=== PATIENT | female | born 1985 | race Caucasian/White ===

== ENCOUNTER 2020-11-25 15:01 | Inpatient (IN) | payer SELFPAY ==
[2020-11-25 15:40] LABS: Absolute Lymphocytes (CBC) 1.3 K/uL (0.7-4.9); Basophils % 0.5 % (0-1.3); Hematocrit 24.4 % (36.0-45.0); Lymphocytes % 22.9 % (15.3-44.8); MPV 10.1 fL (7.6-11.3); RBC Red Blood Cell Count 4.26 M/uL (3.86-4.86)
--- NOTE | 2020-11-25 15:59 | ER ---
Nurse's Notes [facility] Name: Anette Lewis Age: 35 yrs Sex: Female : 1985 Arrival Date: 11/25/2020 Time: 15:03 Bed 13 Private MD: Diagnosis: Anemia, unspecified Presentation: 11/25 15:04 Chief complaint: Patient states: "I did some blood work and my hemoglobin was 7.2 so I aa5 may need a blood transfusion". Pt reports hx of chronic anemia with need of blood transfusion. Pt currently reports SOB on exertion. 15:04 Coronavirus screen: At this time, the client does not indicate any symptoms associated aa5 with coronavirus-19. Ebola Screen: Patient negative for fever greater than or equal to 101.5 degrees Fahrenheit, and additional compatible Ebola Virus Disease symptoms. Initial Sepsis Screen: Does the patient meet any 2 criteria? HR > 90 bpm. Does the patient have a suspected source of infection? No. Patient's initial sepsis screen is negative. Risk Assessment: Do you want to hurt yourself or someone else? Patient reports no desire to harm self or others. Onset of symptoms was November 2020. 15:04 Acuity: UZAIR 3 aa5 15:04 Method Of Arrival: Ambulatory aa5 Triage Assessment: 15:48 Respiratory: Onset: The symptoms/episode began/occurred at an unknown time. the patient zb has moderate shortness of breath. 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 - Social history:: Smoking status: Smoking status: Patient denies any tobacco usage or history of. Screenin:43 Abuse screen: Denies threats or abuse. Denies injuries from another. Nutritional zb screening: No deficits noted. Tuberculosis screening: No symptoms or risk factors identified. Fall Risk None identified. Assessment: 15:41 General: Appears in no apparent distress. comfortable, Behavior is calm, cooperative, zb appropriate for age, Reports fatigue for >3 days. Pain: Denies pain. Neuro: Level of Consciousness is awake, alert, obeys commands, Oriented to person, place, time, situation. Cardiovascular: Patient's skin is warm and dry. Rhythm is regular. Respiratory: Reports shortness of breath on exertion since Tuesday Airway is patent Respiratory effort is even, unlabored, Respiratory pattern is regular, symmetrical, Breath sounds are diminished bilaterally. GI: Abdomen is round obese. Derm: Skin is intact, is healthy with good turgor, Skin is dry, Skin is pale, Skin temperature is warm. Musculoskeletal: Circulation, motion, and sensation intact. 16:00 Reassessment: Patient appears in no apparent distress at this time. Patient and/or zb family updated on plan of care and expected duration. Pain level reassessed. Patient is alert, oriented x 3, equal unlabored respirations, skin warm/dry/pink. ECP at bedside. 17:08 Reassessment: Patient appears in no apparent distress at this time. Patient and/or zb family updated on plan of care and expected duration. Pain level reassessed. Patient is alert, oriented x 3, equal unlabored respirations, skin warm/dry/pink. 18:00 Reassessment: Patient appears in no apparent distress at this time. Patient and/or zb family updated on plan of care and expected duration. Pain level reassessed. Patient is alert, oriented x 3, equal unlabored respirations, skin warm/dry/pink. 19:00 Reassessment: Patient appears in no apparent distress at this time. Patient and/or zb family updated on plan of care and expected duration. Pain level reassessed. Patient is alert, oriented x 3, equal unlabored respirations, skin warm/dry/pink. family at bedside. no changes at this time. Vital Signs: 15:00 BP 116 / 75; Pulse 73; Resp 18; Pulse Ox 100% on R/A; zb 15:04 BP 135 / 99; Pulse 95; Resp 16 S; Temp 98.7(O); Pulse Ox 100% on R/A; aa5 16:00 BP 116 / 75; Pulse 76; Resp 16; Pulse Ox 100% on R/A; zb 17:07 BP 112 / 64; Pulse 73; Resp 18; Pulse Ox 100% on R/A; zb 18:15 BP 113 / 65; Pulse 78; Resp 16; Pulse Ox 100% on R/A; zb 19:00 BP 108 / 65; Pulse 74; Resp 16; Pulse Ox 99% on R/A; zb 19:54 BP 107 / 75; Pulse 75; Resp 18; Pulse Ox 100% on R/A; zb ED Course: 15:03 Patient arrived in ED. ds1 15:04 Arm band placed on Patient placed in an exam room, on a stretcher. aa5 15:07 Kassi Hill FNP-C is PHCP. kb 15:07 Glynn Snell MD is Attending Physician. kb 15:12 Triage completed. aa5 15:25 Initial lab(s) drawn, by me, sent to lab. Inserted saline lock: 20 gauge in right kj1 antecubital area, using aseptic technique. Blood collected. 15:26 Roxanne Joiner, JOSE DANIEL is Primary Nurse. zb 15:45 Patient has correct armband on for positive identification. Bed in low position. Call zb light in reach. Side rails up X 1. Pulse ox on. NIBP on. Door closed. Noise minimized. 15:59 Edvin Mcguire MD is Hospitalizing Provider. kb 20:11 No provider procedures requiring assistance completed. Patient admitted, IV remains in zb place. Administered Medications: No medications were administered Outcome: 15:59 Decision to Hospitalize by Provider. kb 20:12 Admitted to Med/surg accompanied by tech, via wheelchair, room 216, with chart, Report zb called to JOSE DANIEL [place] 20:12 Condition: unchanged 20:12 Instructed on the need for admit, Demonstrated understanding of instructions. 20:14 Patient left the ED. zb Signatures: Kassi Hill FNP-C TREE TRIMMING LINE TECHNICIAN-Yumiko Alfonso ds1 Mary Barron, RN RN aa5 Teresa Hill kj1 Roxanne Joiner RN RN zga Corrections: (The following items were deleted from the chart) 16:04 16:00 Reassessment: ECP at bedside. zb zb 16:04 15:50 BP 116 / 75; Pulse 73bpm; Resp 18bpm; Pulse Ox 100% RA; zb zb
--- NOTE | 2020-11-25 15:59 | EDPHYS ---
Physician Documentation [facility] Name: Anette Lewis Age: 35 yrs Sex: Female : 1985 Arrival Date: 11/25/2020 Time: 15:03 Bed 13 Private MD: ED Physician Glynn Snell HPI: 11/25 15:31 This 35 yrs old Female presents to ER via Ambulatory with complaints of kb Shortness Of Breath. 15:31 The patient has shortness of breath with light activity. Onset: The symptoms/episode kb began/occurred 3 day(s) ago. Duration: The symptoms are continuous. The patient's shortness of breath is aggravated by exertion, is alleviated by rest. Associated signs and symptoms: Pertinent positives: This patient does not have any pertinent positive signs or symptoms associated with shortness of breath. Severity of symptoms: At their worst the symptoms were mild moderate in the emergency department the symptoms are unchanged. The patient has not experienced similar symptoms in the past. The patient has not recently seen a physician. Pt reports shortness of breath on exertion that started a couple of days ago. States this happens once every few years due to anemia. States she normally gets a transfusion and then she's fine for a few years. Has been to specialists for colonoscopy and EGD, as well as other tests with no reason for the anemia. Went to PCP, had blood work done this morning. was told to come to the ER for hgb of 7.1. 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 - Social history:: Smoking status: Smoking status: Patient denies any tobacco usage or history of. ROS: 15:30 Constitutional: Negative for fever, chills, and weight loss, Cardiovascular: Negative kb for chest pain, palpitations, and edema, Abdomen/GI: Negative for abdominal pain, nausea, vomiting, diarrhea, and constipation, MS/Extremity: Negative for injury and deformity, Skin: Negative for injury, rash, and discoloration, Neuro: Negative for headache, weakness, numbness, tingling, and seizure. 15:30 Respiratory: Positive for dyspnea on exertion. Exam: 15:30 Head/Face: Normocephalic, atraumatic. Cardiovascular: Regular rate and rhythm with a kb normal S1 and S2. No gallops, murmurs, or rubs. No pulse deficits. Respiratory: Respirations even and unlabored. No increased work of breathing, no retractions or nasal flaring. Abdomen/GI: Soft, non-tender. No distention Skin: Warm, dry with normal turgor. Normal color. MS/ Extremity: Pulses equal, no cyanosis. Neurovascular intact. Full, normal range of motion. Neuro: Awake and alert, GCS 15, oriented to person, place, time, and situation. Moves all extremities. Normal gait. 15:30 Constitutional: The patient appears alert, awake, pale. Vital Signs: 15:00 BP 116 / 75; Pulse 73; Resp 18; Pulse Ox 100% on R/A; zb 15:04 BP 135 / 99; Pulse 95; Resp 16 S; Temp 98.7(O); Pulse Ox 100% on R/A; aa5 16:00 BP 116 / 75; Pulse 76; Resp 16; Pulse Ox 100% on R/A; zb 17:07 BP 112 / 64; Pulse 73; Resp 18; Pulse Ox 100% on R/A; zb 18:15 BP 113 / 65; Pulse 78; Resp 16; Pulse Ox 100% on R/A; zb 19:00 BP 108 / 65; Pulse 74; Resp 16; Pulse Ox 99% on R/A; zb 19:54 BP 107 / 75; Pulse 75; Resp 18; Pulse Ox 100% on R/A; zb MDM: 15:07 Patient medically screened. kb 15:30 Data reviewed: vital signs, nurses notes. Data interpreted: Pulse oximetry: on room air kb is 100 %. Interpretation: normal. 15:50 Counseling: I had a detailed discussion with the patient and/or guardian regarding: the kb historical points, exam findings, and any diagnostic results supporting the discharge/admit diagnosis, lab results, the need for further work-up and treatment in the hospital. 15:56 Physician consultation: Edvin Mcguire MD was contacted at 15:58, regarding admission, kb to the telemetry unit. patient's condition, and will see patient in ED. 11/25 15:11 Order name: CBC with Diff kb 11/25 15:11 Order name: Type And Screen kb 11/25 15:11 Order name: Basic Metabolic Panel; Complete Time: 16:15 kb 11/25 15:12 Order name: CBC with Automated Diff; Complete Time: 16:15 EDMS 11/25 15:50 Order name: CBC Smear Scan; Complete Time: 16:15 EDMS 11/25 15:58 Order name: Bb Add On bd 11/25 15:11 Order name: IV Start; Complete Time: 15:36 kb 11/25 16:01 Order name: COVID-19 : Document "Date of Symptom Onset" if Symptomatic. kb 11/25 16:25 Order name: Packed RBC Leukored EDKY 11/25 17:33 Order name: SARS-COV-2 RT PCR; Complete Time: 17:40 EDMS 11/25 17:42 Order name: Retic Count; Complete Time: 17:46 EDMS 11/25 17:50 Order name: Transferrin Sat/Iron Binding; Complete Time: 17:53 EDMS 11/25 17:50 Order name: Ferritin; Complete Time: 17:53 EDMS Administered Medications: No medications were administered Disposition: 11/26 06:10 Co-signature as Attending Physician, Glynn Snell MD I agree with the assessment and kdr plan of care. Disposition: 11/25/20 15:59 Hospitalization ordered by Edvin Mcguire for Observation. Preliminary diagnosis is Anemia, unspecified. - Bed requested for Telemetry/MedSurg (observation). - Status is Observation. zb - Condition is Stable. - Problem is new. - Symptoms are unchanged. Signatures: Dispatcher [employer] EDKY Kassi Hill, RN SOCIAL SERVICES-C RN SOCIAL SERVICES-CkSushma Lopez RN RN dw Glynn Snell MD MD [facility] Mary Barron RN RN aa5 Roxanne Joiner RN RN zb Corrections: (The following items were deleted from the chart) 11/25 19:34 15:59 Hospitalization Ordered by Edvin Mcguire MD for Observation. Preliminary dw diagnosis is Anemia, unspecified. Bed requested for Telemetry/MedSurg (observation). Status is Observation. Condition is Stable. Problem is new. Symptoms are unchanged. kb 20:14 19:34 11/25/2020 15:59 Hospitalization Ordered by Edvin Mcguire MD for Observation. zb Preliminary diagnosis is Anemia, unspecified. Bed requested for Telemetry/MedSurg (observation). Status is Observation. Condition is Stable. Problem is new. Symptoms are unchanged. dw
[2020-11-25 16:02] LABS: BUN Blood Urea Nitrogen 12 mg/dL (7-18); Bicarbonate 26 mmol/L (21-32); Glucose Level 87 mg/dL (74-106); Potassium 3.5 mmol/L (3.5-5.1); Sodium Level 139 mmol/L (136-145)
[2020-11-25 16:13] LABS: White Blood Cell Scan OK (OK)
[2020-11-25 16:14] LABS: Anisocytosis 1+; Blood Morphology Comment NOTED (NOT SEEN); Hypochromasia 3+; Platelet Estimate ADEQ; Platelets, Giant PRESENT; Poikilocytosis 1+
--- NOTE | 2020-11-25 16:54 | P.HP ---
Certification for Inpatient Patient admitted to: Observation With expected LOS: <2 Midnights Practitioner: I am a practitioner with admitting privileges, knowledge of patient current condition, hospital course, and medical plan of care. Services: Services provided to patient in accordance with Admission requirements found in Title 42 Section 412.3 of the Code of Federal Regulations Patient History Date of Service: 11/25/20 Reason for admission: anemia History of Present Illness: 35yo F presents to ED under advice from PCP due to low hemoglobin noted on labwork. PMH: chronic anemia, iron deficiency after gastric bypass surgery in 2001 Patient states she received a Surya Surya vaccine 1 week ago, had flu-like symptoms, and decided to get some routine blood work. Blood work showed a low hemoglobin around 7. She is advised coming to the ER for blood transfusion. She states this has happened multiple times before. She has had multiple endoscopies which were all negative, she denies any bleeding, she denies experiencing any significant fatigue/dizziness/lightheadedness. She states this is typical for her, and does not notice a difference until after receiving the blood and feeling much better. She takes NPO Terry occasionally, but has been told she does not absorb it well since the surgery. She denies any acid reflux, no epigastric pain. Her hemoglobin in the ED is noted to be 6.7, MCV: 57.3. ED provider ordered for 2 units of PRBCs and would like the patient to be brought in for observation overnight. Allergies No Known Allergies Allergy (Verified 05/29/13 17:20) Home Medications: Cyanocobalamin [Vitamin B-12*] 1,000 mcg IM EVERY 7TH DAY #12 vial 07/31/17 Ferrous Sulfate [Feosol] 325 mg PO TID #90 tablet 07/31/17 levoFLOXacin [Levaquin] 500 mg PO DAILY #14 tab 07/31/17 - Past Medical/Surgical History Diabetic: No -: anemia -: obesity -: gastric by-pass 2001 - Family History Father -: Hypertension, Diabetes Mother -: Hypertension - Social History Smoking Status: Never smoker Alcohol use: Yes CD- Drugs: No Caffeine use: Yes Place of Residence: Home Review of Systems 10-point ROS is otherwise unremarkable Physical Examination - Physical Exam General: Alert, In no apparent distress, Oriented x3 HEENT: PERRLA, Sclerae nonicteric Neck: Supple Respiratory: Clear to auscultation bilaterally, Normal air movement Cardiovascular: No edema, Regular rate/rhythm, Normal S1 S2 Gastrointestinal: Soft and benign, Non-distended, No tenderness Musculoskeletal: No erythema, No tenderness Integumentary: No rashes Neurological: Normal speech, Normal strength at 5/5 x4 extr, Normal affect - Studies Laboratory Data (last 24 hrs) 11/25/20 15:21: Sodium 139, Potassium 3.5, BUN 12, Creatinine 0.45 L, Glucose 87 11/25/20 15:21: WBC 5.60, Hgb 6.7 L*, Hct 24.4 L, Plt Count 248 Assessment and Plan - Advance Directives Does patient have a Living Will: No Does patient have a Durable POA for Healthcare: No Physician Review Additional Text: Problem list Acute on chronic anemia Iron deficiency anemia. h/o gastric bypass -2 unit PRBC ordered by ED, will bring patient in for observation -will obtain iron profile, patient with significant microcytic anemia -recheck hemoglobin post transfusion, CBC in a.m. -patient otherwise appears well, denies any bleeding, does not want any further workup done, states she has had multiple scopes in the past -anticipate discharge home tomorrow, can follow up with PCP for any further workup if indicated -discussed she may need more routine iron transfusions -does not know where here baseline Hgb is Time Spent Managing Pts Care (In Minutes): 55
[2020-11-25 17:42] LABS: RBC Red Blood Cell Count 4.26 M/uL (3.86-4.86)
[2020-11-25 17:50] LABS: Ferritin 3.3 ng/mL (8-388)
[2020-11-25 22:19] VITALS: BMI 40.6
[2020-11-25] MEDS ORDERED: NA CHLORIDE 0.9% 250 ML ONE (23:18)
[2020-11-26 08:49] VITALS: O2SAT 100
[2020-11-26 09:03] VITALS: TEMP 98.5
[2020-11-26 10:21] LABS: Absolute Lymphocytes (CBC) 1.3 K/uL (0.7-4.9); Basophils % 1.3 % (0-1.3); Hematocrit 29.7 % (36.0-45.0); Lymphocytes % 26.2 % (15.3-44.8); MPV 9.1 fL (7.6-11.3)
[2020-11-26 10:38] LABS: BUN Blood Urea Nitrogen 12 mg/dL (7-18); Bicarbonate 25 mmol/L (21-32); Glucose Level 89 mg/dL (74-106); Sodium Level 140 mmol/L (136-145)
--- NOTE | 2020-11-26 10:50 | P.DS ---
Admission Date: 11/25/20 Discharge Date: 11/26/20 Disposition: ROUTINE DISCHARGE Discharge Condition: GOOD Reason for Admission: anemia Brief History of Present Illness: 35yo F presents to ED under advice from PCP due to low hemoglobin noted on labwork. PMH: chronic anemia, iron deficiency after gastric bypass surgery in 2001 Patient states she received a Surya Surya vaccine 1 week ago, had flu-like symptoms, and decided to get some routine blood work. Blood work showed a low hemoglobin around 7. She is advised coming to the ER for blood transfusion. She states this has happened multiple times before. She has had multiple endoscopies which were all negative, she denies any bleeding, she denies experiencing any significant fatigue/dizziness/lightheadedness. She states this is typical for her, and does not notice a difference until after receiving the blood and feeling much better. She takes NPO Terry occasionally, but has been told she does not absorb it well since the surgery. She denies any acid reflux, no epigastric pain. Her hemoglobin in the ED is noted to be 6.7, MCV: 57.3. ED provider ordered for 2 units of PRBCs and would like the patient to be brought in for observation overnight. Hospital Course: Anette was found to be anemic , with hemoglobin 6.7, MCV: 57.3. Iron profile consistent with iron deficiency anemia. Iron: 15, ferritin: 3.3, TIBC: 449, transferrin saturation: 3.3%. She received 2 units PRBCs, hemoglobin improved to 8.7. Patient reported feeling better, more energy. Patient declined any further workup at this time, states she has had EGD and colonoscopy before and did not have any signs of bleeding during her last scopes. She was discharged home. Follow up: PCP - discuss possible IV iron infusions, seems to not absorbed p.o. iron GI - advised to consider follow up with GI/further discussion with PCP if this continues. Vital Signs/Physical Exam: Physical Exam General: Alert, In no apparent distress, Oriented x3 HEENT: PERRLA, Sclerae nonicteric Respiratory: Clear to auscultation bilaterally, Normal air movement Cardiovascular: No edema, Regular rate/rhythm, Normal S1 S2 Gastrointestinal: Soft and benign, Non-distended, No tenderness Musculoskeletal: No erythema, No tenderness Integumentary: No rashes Neurological: Normal speech, Normal strength at 5/5 x4 extr, Normal affect Temp Pulse Resp BP Pulse Ox 98.5 F 71 16 98/56 L 98 11/26/20 08:00 11/26/20 08:00 11/26/20 08:00 11/26/20 08:00 11/26/20 08:00 Laboratory Data at Discharge: WBC 4.90 K/uL (4.3-10.9) 11/26/20 09:58 Hgb 8.7 g/dL (12.0-15.0) L 11/26/20 09:58 Hct 29.7 % (36.0-45.0) L D 11/26/20 09:58 Plt Count 227 K/uL (152-406) 11/26/20 09:58 Sodium 139 mmol/L (136-145) 11/25/20 15:21 Potassium 3.5 mmol/L (3.5-5.1) 11/25/20 15:21 BUN 12 mg/dL (7-18) 11/25/20 15:21 Creatinine 0.45 mg/dL (0.55-1.3) L 11/25/20 15:21 Glucose 87 mg/dL (74-106) 11/25/20 15:21 Home Medications: NK [No Home Meds] 11/25/20 Physician Discharge Instructions: PROBLEM: Iron deficiency anemia GOAL: Clear understanding of disease process INSTRUCTIONS: You were found to be anemic, with severe iron deficiency anemia. You were transfused 2 units of blood and responded appropriately. Recommend continuing to take oral iron as previously prescribed by your Primary Care Provider. Recommend follow up with your PCP - discuss options for IV iron infusions and discuss follow up with GI - to consider repeat EGD / colonoscopy to confirm no GI bleed. - Return to the ER if symptoms worsen. - Call the 2nd floor at if you have any questions regarding your nursing care. Diet: Regular Activity: As tolerated IMMUNIZATION Influenza Vaccine Indicated: Influenza Vaccine Given: Date Given: Pneumonia Vaccine Indicated: No Pneumonia Vaccine Given: Date Given: Diet: Regular Activity: Ad marielena Followup: Elvira Cazares FNP [Primary Care Provider] - 1 Week (Follow up in office in 1 week. Call to schedule an appointment.) Time spent managing pt's care (in minutes): 35
[2020-11-26 10:56] LABS: Potassium 3.9 mmol/L (3.5-5.1)
[2020-11-26] MEDS ORDERED: POTASSIUM CL SA 10 MEQ TAB PO ONE (12:00)
[2020-11-26 12:22] VITALS: BP 120/63
== END 2020-11-26 14:00 | disposition home or self-care (01) | DRG 812 ==
LOC: ER 15:01 → ERHOLD 16:43 → 2ND 20:05 → OBSVTOIN 11-26 10:00
PROVIDERS: ADMIT Hospitalist; ATTEND Hospitalist
PROC: 30233N1 Transfusion of Nonautologous Red Blood Cells into Peripheral Vein, Percutaneous Approach (ICD-10-PCS; principal; 2020-11-26)
DX: D50.9 Iron deficiency anemia, unspecified (principal); Z98.84 Bariatric surgery status; Z79.899 Other long term (current) drug therapy; Z20.822 Contact with and (suspected) exposure to COVID-19
CPT/HCPCS: 36415; 36430; 80048; 82728; 83540; 84466; 85025; 85044; 86850; 86900; 86901; 94760; 97161; 99285; G0378; J7050; P9016; U0003

== ENCOUNTER 2022-06-22 04:42 | Observation (INO) | payer SELFPAY ==
[2022-06-22 05:53] LABS: Hematocrit 25.6 % (36.0-45.0); MCV 58.7 fL (80-100); MPV 8.3 fL (7.6-11.3); RBC Red Blood Cell Count 4.35 M/uL (3.86-4.86)
[2022-06-22 06:09] LABS: Urine Blood 2+ (Negative); Urine Glucose Negative (Negative); Urine Protein 1+ (Negative); Urine Specific Gravity >=1.030 (1.005-1.030)
[2022-06-22 06:10] LABS: Albumin 3.7 g/dL (3.4-5.0); Bilirubin Total 0.8 mg/dL (0.2-1.0); Potassium 3.7 mmol/L (3.5-5.1); Protein, Total 7.4 g/dL (6.4-8.2)
[2022-06-22] MEDS ORDERED: ONDANSETRON 4 MG/2 ML VIAL ONE (06:22)
[2022-06-22] MEDS ORDERED: HYDROMORPHONE HCL 1 MG/ML INJ ONE ×2 (06:22→13:00)
[2022-06-22 07:09] LABS: White Blood Cell Scan OK (OK)
[2022-06-22 07:10] LABS: Anisocytosis 3+; Blood Morphology Comment NOTED (NOT SEEN); Hypochromasia 3+; Platelet Estimate DECR
--- NOTE | 2022-06-22 07:16 | RAD REPORT ---
EXAM DESCRIPTION: CT - Abdomen Pelvis W Contrast - 06/22/2022 7:01 am CLINICAL HISTORY: abdominal pain RUQ COMPARISON: No comparisons TECHNIQUE: Biphasic, helical CT imaging of the abdomen and pelvis was performed following 100 ml non -ionic IV contrast. Oral contrast: No. All CT scans are performed using dose optimization technique as appropriate and may include automated exposure control or mA/KV adjustment according to patient size. FINDINGS: No suspicious findings in the lung bases. The liver, spleen, and pancreas show no suspicious findings. Cholelithiasis present. Gallbladder wall appears slightly thickened. No abnormal degree of biliary tree dilatation. Duct stones can be occult on CT imaging. Symmetric renal function is seen with no hydronephrosis or suspicious renal mass. No pyelonephritis o r acute parenchymal process. No bladder abnormalities. No adrenal abnormalities. Uterus and ovaries s how no suspicious findings. Left ovary contains small cysts or follicles. Largest is 2.7 cm. No ovari an cyst rupture or hemorrhage findings. Gastric bypass surgical changes are present. No acute gastric finding identifiable. Distal anastomosi s the small bowel unremarkable. No acute large or small bowel finding seen. Moderate stool volume is present throughout the colon. No free air, free fluid or inflammatory stranding. No hernia, mass or bulky lymphadenopathy. No suspicious bony findings. IMPRESSION: Gallbladder is distended and not dilated with gallstones seen and slight wall thickening evident. Biliary tree is not dilated beyond normal range. Duct stones in additional gallstones can be occult o n CT imaging. Follow-up gallbladder sonography can be performed if there are acute cholecystitis clin ical findings. No acute GI, or SAP BW ARCHITECT findings otherwise noted.
--- NOTE | 2022-06-22 09:14 | RAD REPORT ---
EXAM DESCRIPTION: US - Abdomen Exam Limited - 06/22/2022 8:46 am CLINICAL HISTORY: ABD PAIN COMPARISON: Abdomen Pelvis W Contrast dated 06/22/2022 FINDINGS: Gallbladder appears distended but not dilated at sonography. Mild gallbladder wall thicken ing is present with a trace amount of pericholecystic fluid identifiable. Within the lumen there are several small mobile gallstones and a moderate quantity of sludge. Sonographic Quintana sign was negati ve for this patient. No common duct stone or biliary tree dilatation identified. IMPRESSION: Stones and sludge are present in the lumen of the gallbladder. Mild gallbladder wall thickening seen with trace amount of pericholecystic fluid. Biliary tree was un remarkable. Sonographic Quintana sign was negative but correlation can be made with any other clinical or laborator y findings of acute cholecystitis.
--- NOTE | 2022-06-22 09:25 | EDPHYS ---
Physician Documentation [facility] Name: Anette Lewis Age: 36 yrs Sex: Female : 1985 Arrival Date: 06/22/2022 Time: 04:44 Bed 14 Private MD: ED Physician Tom Mcguire HPI: 06/22 05:45 This 36 yrs old Female presents to ER via Ambulatory with complaints of Abdominal Pain. sp3 05:45 36-year-old female with history of gastric bypass in 2001, anemia presents to the ED sp3 with right upper quadrant pain x1 day with nausea. She denies headache, chest pain, shortness of breath, diarrhea, left-sided abdominal pain, emesis back pain, flank pain, rash, any other aspect of ROS at this time. Patient still has gallbladder and appendix in place. She denies any potential bad food, sick contacts, or travel history.. 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 - Social history:: Smoking status: Patient denies any tobacco usage or history of. ROS: 05:46 Constitutional: Negative for fever, chills, and weight loss, Eyes: Negative for injury, sp3 pain, redness, and discharge, ENT: Negative for injury, pain, and discharge, Neck: Negative for injury, pain, and swelling, Cardiovascular: Negative for chest pain, palpitations, and edema, Respiratory: Negative for shortness of breath, cough, wheezing, and pleuritic chest pain, Back: Negative for injury and pain, MS/Extremity: Negative for injury and deformity, Skin: Negative for injury, rash, and discoloration, Neuro: Negative for headache, weakness, numbness, tingling, and seizure, Psych: Negative for depression, anxiety, suicide ideation, homicidal ideation, and hallucinations, Allergy/Immunology: Negative for hives, rash, and allergies, Endocrine: Negative for neck swelling, polydipsia, polyuria, polyphagia, and marked weight changes. 05:46 All other systems are negative. Exam: 05:47 Constitutional: This is a well developed, well nourished patient who is awake, alert, sp3 and in no acute distress. Head/Face: Normocephalic, atraumatic. Eyes: Pupils equal round and reactive to light, extra-ocular motions intact. Lids and lashes normal. Conjunctiva and sclera are non-icteric and not injected. Cornea within normal limits. Periorbital areas with no swelling, redness, or edema. Neck: Trachea midline, no thyromegaly or masses palpated, and no cervical lymphadenopathy. Supple, full range of motion without nuchal rigidity, or vertebral point tenderness. No Meningismus. Chest/axilla: Normal chest wall appearance and motion. Nontender with no deformity. No lesions are appreciated. Cardiovascular: Regular rate and rhythm with a normal S1 and S2. No gallops, murmurs, or rubs. Normal PMI, no JVD. No pulse deficits. Respiratory: Lungs have equal breath sounds bilaterally, clear to auscultation and percussion. No rales, rhonchi or wheezes noted. No increased work of breathing, no retractions or nasal flaring. Back: No spinal tenderness. No costovertebral tenderness. Full range of motion. Skin: Warm, dry with normal turgor. Normal color with no rashes, no lesions, and no evidence of cellulitis. MS/ Extremity: Pulses equal, no cyanosis. Neurovascular intact. Full, normal range of motion. Neuro: Awake and alert, GCS 15, oriented to person, place, time, and situation. Cranial nerves II-XII grossly intact. Motor strength 5/5 in all extremities. Sensory grossly intact. Cerebellar exam normal. Normal gait. Psych: Awake, alert, with orientation to person, place and time. Behavior, mood, and affect are within normal limits. 05:47 Abdomen/GI: Patient has right upper quadrant without peritoneal signs. Positive Quintana's. No pain over McBurney's point. No flank pain CVA tenderness.. Vital Signs: 05:03 BP 113 / 62; Pulse 63; Resp 16 S; Temp 98.2(O); Pulse Ox 100% on R/A; Weight 98.88 kg bb (R); Height 5 ft. 5 in. (165.10 cm) (R); Pain 8/10; 06:45 BP 106 / 50; Pulse 55; Resp 16; Pulse Ox 96% on R/A; jb4 08:00 BP 121 / 54; Pulse 56; Resp 16; Pulse Ox 96% ; bp 09:00 BP 116 / 61; Pulse 54; Resp 16; Pulse Ox 100% ; bp 10:00 BP 117 / 60; Pulse 50; Resp 16; Pulse Ox 100% ; bp 12:00 BP 115 / 59; Pulse 65; Resp 16; Pulse Ox 100% ; bp 14:00 BP 109 / 53; Pulse 55; Resp 16; Pulse Ox 99% ; bp 16:00 BP 101 / 69; Pulse 62; Resp 16; Pulse Ox 100% ; bp 05:03 Body Mass Index 36.28 (98.88 kg, 165.10 cm) bb MDM: 05:45 Patient medically screened. sp3 05:48 Data reviewed: vital signs, nurses notes. ED course: 36-year-old female with history of sp3 gastric bypass now with right upper quadrant pain. Given her complicated surgical history, CT scan is more appropriate than ultrasound to evaluate her entire abdomen. Differential diagnosis includes gallbladder pathology including Kimi lithiasis, cholecystitis, and possible pancreatitis gastritis peptic ulcer disease. Less likely on the differential is appendicitis, ACS, aortic pathology, SLURRY BLENDER pathology, genitourinary pathology including kidney stone, pyelonephritis, UTI. Dilaudid and Zofran for pain control and final disposition based on objective criteria from work-up above. Patient will be signed out to day physician at 7 AM for final disposition.. 09:23 Differential diagnosis: cholecystitis, Cholelithiasis, gastritis, gastroesophageal rn reflux disease, non-specific abd pain, pancreatitis, Peptic Ulcer Disease. Counseling: I had a detailed discussion with the patient and/or guardian regarding: the historical points, exam findings, and any diagnostic results supporting the discharge/admit diagnosis, lab results, radiology results, the need for further work-up and treatment in the hospital. Response to treatment: the patient's symptoms have mildly improved after treatment, and as a result, I will admit patient. 06/22 05:06 Order name: CBC with Diff; Complete Time: 07:49 bb 06/22 05:06 Order name: CMP; Complete Time: 06:46 bb 06/22 05:06 Order name: Lipase; Complete Time: 06:46 bb 06/22 05:59 Order name: CBC Smear Scan; Complete Time: 07:49 EDMS 06/22 06:09 Order name: Urine Dipstick-Ancillary; Complete Time: 06:46 EDMS 06/22 05:23 Order name: CT Abd/Pelvis - IV Contrast Only; Complete Time: 07:49 sp3 06/22 08:15 Order name: US Abdomen Limited; Complete Time: 09:21 rn 06/22 10:05 Order name: SARS-COV-2 Antigen Rapid; Complete Time: 11:13 bd 06/22 11:54 Order name: Urinalysis EDMS 06/22 11:54 Order name: Basic Metabolic Panel EDMS 06/22 11:54 Order name: Basic Metabolic Panel EDMS 06/22 11:54 Order name: CBC with Automated Diff EDMS 06/22 11:54 Order name: CBC with Automated Diff EDMS 06/22 05:06 Order name: IV Saline Lock; Complete Time: 06:02 bb 06/22 05:06 Order name: Labs collected and sent; Complete Time: 06:02 bb 06/22 05:06 Order name: Urine Dipstick-Ancillary (obtain specimen); Complete Time: 06:10 bb 06/22 05:06 Order name: Urine Test (obtain specimen); Complete Time: 06:10 bb 06/22 05:23 Order name: NPO; Complete Time: 06:02 sp3 06/22 11:54 Order name: NPO EDMS Administered Medications: 06:30 Drug: Dilaudid (HYDROmorphone) 1 mg Route: IVP; Site: right antecubital; jb4 09:44 Follow up: Response: No adverse reaction bp 06:30 Drug: Zofran (Ondansetron) 4 mg Route: IVP; Site: right antecubital; jb4 09:45 Follow up: Response: No adverse reaction bp 09:40 Drug: Zosyn (piperacillin-tazobactam) 3.375 grams Route: IVPB; Infused Over: 60 mins; bp Site: right antecubital; 16:02 Follow up: IV Status: Completed infusion; IV Intake: 100ml bp 09:40 Drug: NS 0.9% 1000 ml Route: IV; Rate: 1000 ml; Site: right antecubital; bp 16:02 Follow up: IV Status: Completed infusion; IV Intake: 1000ml bp Disposition Summary: 06/22/22 09:24 Hospitalization Ordered Hospitalization Status: Observation rn Condition: Stable rn Problem: new rn Symptoms: have improved rn Bed/Room Type: Standard rn Provider: Edvin Mcguire(06/22/22 10:43) rn Location: [facility](06/22/22 15:41) dw Room Assignment: [facility]-(06/22/22 15:41) dw Diagnosis - Acute cholecystitis rn - Anemia, unspecified rn Forms: - Medication Reconciliation Form rn - SBAR form rn Signatures: Dispatcher [employer] EDSushma Howard RN RN Ethel Huggins RN RN Tom Healy MD MD rn Bryson, James, RN RN jb4 Delvin Hamlin RN RN Riki Barnes MD MD sp3 Corrections: (The following items were deleted from the chart) 05:06 05:05 PMHx: uclers; raheem maciel 10:43 09:24 Vick Johnson rn rn 15:41 09:24 Telemetry/MedSurg (observation) hina florence 15:41 09:24 rn dw
--- NOTE | 2022-06-22 09:25 | ER ---
Nurse's Notes [facility] Name: Anette Lewis Age: 36 yrs Sex: Female : 1985 Arrival Date: 06/22/2022 Time: 04:44 Bed 14 Private MD: Diagnosis: Acute cholecystitis;Anemia, unspecified Presentation: 06/22 05:03 Chief complaint: Patient states: she is having right upper quad pain starting around bb 2030 last night denies fever, vomiting, diarrhea, but feels nausea pain is 8/10. Coronavirus screen: At this time, the client does not indicate any symptoms associated with coronavirus-19. Ebola Screen: No symptoms or risks identified at this time. Initial Sepsis Screen: Does the patient meet any 2 criteria? No. Patient's initial sepsis screen is negative. Does the patient have a suspected source of infection? No. Patient's initial sepsis screen is negative. Risk Assessment: Do you want to hurt yourself or someone else? Patient reports no desire to harm self or others. Onset of symptoms was June 21, 2022. 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 - Social history:: Smoking status: Patient denies any tobacco usage or history of. Screenin:38 Abuse screen: Denies threats or abuse. Nutritional screening: No deficits noted. jb4 Tuberculosis screening: No symptoms or risk factors identified. Fall Risk None identified. Assessment: 05:38 General: Appears in no apparent distress. comfortable, Behavior is calm, cooperative, jb4 appropriate for age. Pain: Complains of pain in abdomen Pain does not radiate. Pain currently is 8 out of 10 on a pain scale. Neuro: Level of Consciousness is awake, alert, obeys commands, Oriented to person, place, time, situation. Cardiovascular: Patient's skin is warm and dry. Respiratory: Airway is patent Respiratory effort is even, unlabored, Respiratory pattern is regular, symmetrical. GI: Abdomen is non-distended, obese, Bowel sounds present X 4 quads. Abd is soft and non tender in left upper quadrant, right lower quadrant and left lower quadrant Abd is soft in right upper quadrant Abd is non tender in right upper quadrant. : No signs and/or symptoms were reported regarding the genitourinary system. EENT: No signs and/or symptoms were reported regarding the EENT system. Derm: Skin is intact, Skin is pink, warm \T\ dry. Musculoskeletal: Circulation, motion, and sensation intact. Range of motion: intact in all extremities. 07:00 Reassessment: Patient appears in no apparent distress at this time. Patient and/or jb4 family updated on plan of care and expected duration. Pain level reassessed. Patient is alert, oriented x 3, equal unlabored respirations, skin warm/dry/pink. Patient states feeling better. 07:00 Reassessment: RECD REPORT FROM [facility]. 36YO HF P/W ABD PAIN, CT RESULTS PENDING. bp 09:00 Reassessment: No changes from previously documented assessment. Patient and/or family bp updated on plan of care and expected duration. Pain level reassessed. 10:00 Reassessment: ADMIT INITIATED. bp Vital Signs: 05:03 BP 113 / 62; Pulse 63; Resp 16 S; Temp 98.2(O); Pulse Ox 100% on R/A; Weight 98.88 kg bb (R); Height 5 ft. 5 in. (165.10 cm) (R); Pain 8/10; 06:45 BP 106 / 50; Pulse 55; Resp 16; Pulse Ox 96% on R/A; jb4 08:00 BP 121 / 54; Pulse 56; Resp 16; Pulse Ox 96% ; bp 09:00 BP 116 / 61; Pulse 54; Resp 16; Pulse Ox 100% ; bp 10:00 BP 117 / 60; Pulse 50; Resp 16; Pulse Ox 100% ; bp 12:00 BP 115 / 59; Pulse 65; Resp 16; Pulse Ox 100% ; bp 14:00 BP 109 / 53; Pulse 55; Resp 16; Pulse Ox 99% ; bp 16:00 BP 101 / 69; Pulse 62; Resp 16; Pulse Ox 100% ; bp 05:03 Body Mass Index 36.28 (98.88 kg, 165.10 cm) ED Course: 04:44 Patient arrived in ED. bp1 05:05 Triage completed. bb 05:05 Arm band placed on Patient placed in an exam room, on a stretcher, on pulse oximetry. bb Family accompanied patient. 05:23 Riki Cummings MD is Attending Physician. sp3 05:38 Patient has correct armband on for positive identification. Bed in low position. Call jb4 light in reach. Side rails up X 1. Client placed on continuous cardiac and pulse oximetry monitoring. NIBP monitoring applied. 05:38 Initial lab(s) drawn, by mi, sent to lab. Inserted saline lock: 18 gauge in right jb4 antecubital area, using aseptic technique. Blood collected. 06:11 Matthew Mccollum RN is Primary Nurse. jb4 06:57 Attending Physician role handed off by Riki Cummings MD rn 06:57 Tom Mcguire MD is Attending Physician. rn 07:02 CT Abd/Pelvis - IV Contrast Only In Process Unspecified. EDMS 07:12 Primary Nurse role handed off by Matthew Mccollum RN bp 07:12 Delvin Hamlin RN is Primary Nurse. bp 08:47 US Abdomen Limited In Process Unspecified. EDMS 09:24 Vick Johnson MD is Hospitalizing Provider. rn 10:43 Edvin Mcguire MD is Hospitalizing Provider. rn 16:01 No provider procedures requiring assistance completed. Patient admitted, IV remains in bp place. Administered Medications: 06:30 Drug: Dilaudid (HYDROmorphone) 1 mg Route: IVP; Site: right antecubital; jb4 09:44 Follow up: Response: No adverse reaction bp 06:30 Drug: Zofran (Ondansetron) 4 mg Route: IVP; Site: right antecubital; jb4 09:45 Follow up: Response: No adverse reaction bp 09:40 Drug: Zosyn (piperacillin-tazobactam) 3.375 grams Route: IVPB; Infused Over: 60 mins; bp Site: right antecubital; 16:02 Follow up: IV Status: Completed infusion; IV Intake: 100ml bp 09:40 Drug: NS 0.9% 1000 ml Route: IV; Rate: 1000 ml; Site: right antecubital; bp 16:02 Follow up: IV Status: Completed infusion; IV Intake: 1000ml bp Medication: 05:38 VIS not applicable for this client. jb4 Intake: 16:02 IV: 1000ml; Total: 1000ml. bp 16:02 IV: 100ml; Total: 1100ml. bp Outcome: 09:24 Decision to Hospitalize by Provider. rn 16:01 Admitted to L \T\ D, accompanied by tech, family with patient, via wheelchair, room 270. bp 16:01 Condition: stable 16:01 Instructed on the need for admit. 17:02 Patient left the ED. iw Signatures: Dispatcher [employer] EDMS Ethel Wright RN RN bb Williams, Irene, RN RN iw Tom Mcguire MD MD rn Bryson, James, RN RN jb4 Delvin Hamlin RN RN bp Paniauga, Brittany bp1 Patel, Setul, MD MD sp3 Corrections: (The following items were deleted from the chart) 05:06 05:05 PMHx: uclers; raheem maciel 06:17 04:38 General: Appears in no apparent distress. comfortable, Behavior is calm, jb4 cooperative, appropriate for age, jb4 06:17 04:38 Pain: Complains of pain in abdomen Pain does not radiate. Pain currently is 8 out jb4 of 10 on a pain scale. jb4 06:17 04:38 Neuro: Level of Consciousness is awake, alert, obeys commands, Oriented to jb4 person, place, time, situation, jb4 06:17 04:38 Cardiovascular: Patient's skin is warm and dry. jb4 jb4 06:17 04:38 Respiratory: Airway is patent Respiratory effort is even, unlabored, Respiratory jb4 pattern is regular, symmetrical, jb4 06:17 04:38 GI: Abdomen is non-distended, obese, Bowel sounds present X 4 quads. Abd is soft jb4 and non tender in left upper quadrant, right lower quadrant and left lower quadrant Abd is soft in right upper quadrant Abd is non tender in right upper quadrant jb4 06:17 04:38 : No signs and/or symptoms were reported regarding the genitourinary system. [id number] 06:17 04:38 EENT: No signs and/or symptoms were reported regarding the EENT system. jb4 jb4 :17 04:38 Derm: Skin is intact, Skin is pink, warm \T\ dry. jb4 jb4 06:17 04:38 Musculoskeletal: Circulation, motion, and sensation intact. Range of motion: jb4 intact in all extremities, jb4 :17 04:38 VIS not applicable for this client. jb4 jb4 06:18 04:38 Abuse screen: Denies threats or abuse. jb4 jb4 06:18 04:38 Nutritional screening: No deficits noted. jb4 jb4 06:18 04:38 Tuberculosis screening: No symptoms or risk factors identified. jb4 jb4 06:18 04:38 Fall Risk None identified. jb4 jb4
[2022-06-22] MEDS ORDERED: NA CHLORIDE 0.9% 100 ML IV ONE (09:27)
[2022-06-22] MEDS ORDERED: PIPERACIL/TAZO 3.375 GM VIAL IV ONE (09:27)
[2022-06-22] MEDS ORDERED: NA CHLORIDE 0.9% 1,000 ML ONE (09:34)
[2022-06-22 10:42] LABS: SARS-CoV-2 Antigen Rapid Res Negative (Negative)
[2022-06-22] MEDS ORDERED: D5 0.9 NS 1,000 ML IV SCH (12:00)
--- NOTE | 2022-06-22 12:59 | P.HP ---
Certification for Inpatient Patient admitted to: Observation With expected LOS: <2 Midnights Patient will require the following post-hospital care: None Practitioner: I am a practitioner with admitting privileges, knowledge of patient current condition, hospital course, and medical plan of care. Services: Services provided to patient in accordance with Admission requirements found in Title 42 Section 412.3 of the Code of Federal Regulations Patient History Date of Service: 06/22/22 Reason for admission: Abdominal pain History of Present Illness: Patient patient is a 36-year-old female with a past medical history significant for anemia, obesity, gastric ulcer who presents with complaint of right upper quadrant pain that has been ongoing since yesterday. Patient rated pain as 10/10 in severity and described pain as aching in quality. Patient reported associated signs and symptoms of nausea and shortness of breath. Patient reported that abdominal is aggravated by deep breathing and relieved by nothing. Patient denies any other signs or symptoms. Patient decided to present to the hospital due to worsening symptoms. Allergies No Known Allergies Allergy (Verified 05/29/13 17:20) Home Medications: NK [No Home Meds] 11/25/20 - Past Medical/Surgical History Diabetic: No -: anemia -: obesity -: gastric by-pass 2001 - Family History Father -: Hypertension, Diabetes Mother -: Hypertension, Other (see notes) (GERD) - Social History Smoking Status: Never smoker Alcohol use: Yes CD- Drugs: No Caffeine use: Yes Place of Residence: Home Review of Systems General: Unremarkable Eyes: Unremarkable ENT: Unremarkable Respiratory: Shortness of Breath Cardiovascular: Unremarkable Gastrointestinal: Nausea, Abdominal Pain Genitourinary: Unremarkable Musculoskeletal: Unremarkable Integumentary: Unremarkable Neurological: Unremarkable Physical Examination - Physical Exam General: Alert, Oriented x3, Cooperative HEENT: Atraumatic, Normocephalic, PERRLA Neck: Supple, 2+ carotid pulse no bruit, JVD not distended Respiratory: Clear to auscultation bilaterally, Normal air movement Cardiovascular: No edema, Normal pulses Capillary refill: <2 Seconds Gastrointestinal: Normal bowel sounds, Tenderness Musculoskeletal: No clubbing, No swelling, No contractures, No erythema Integumentary: No rashes, No breakdown, No significant lesion Neurological: Normal gait, Normal speech, Normal tone Lymphatics: No axilla or inguinal lymphadenopathy - Studies Laboratory Data (last 24 hrs) 06/22/22 05:38: Sodium 135 L, Potassium 3.7, BUN 10, Creatinine 0.53 L, Glucose 111 H, Total Bilirubin 0.8, AST 17, ALT 19, Alkaline Phosphatase 96, Lipase 91 06/22/22 05:38: WBC 7.70, Hgb 7.3 L, Hct 25.6 L, Plt Count 114 L Assessment and Plan - Plan --Acute cholecystitis. Surgeon consulted. Patient placed on antibiotics. Continue IV hydration. Will await further recommendations from surgeon. --Acute pain. We will manage pain with current pain medication regimen. --Chronic anemia. Hemoglobin stable. Iron studies pending. We will continue to monitor H&H and transfuse if less than 7.0. --Nausea. Antiemetics on board. -- History of gastric ulcer. Patient placed on Protonix IV. --CKD 3A. Stable. We will continue to monitor renal functions. --Class II obesity. Likely secondary to excess calories intake. Patient counseled on weight reduction, diet and excise therapy. --Thrombocytopenia. Unclear etiology. Continue supportive care --DVT prophylaxis with SCDs. Discharge Plan: Home Plan to discharge in: 48 Hours - Advance Directives Does patient have a Living Will: No Does patient have a Durable POA for Healthcare: No - Code Status/Comfort Care Code Status Assessed: Yes Physician Review: Patient Assessed, Agree with Above Assessment and Plan Critical Care: No
[2022-06-22] MEDS ORDERED: D5 0.9 NS 1,000 ML IV ONE (13:00)
[2022-06-22] MEDS: HYDROMORPHONE HCL 1 MG/ML INJ IV PRN ×2 (13:00→18:51)
[2022-06-22 16:32] VITALS: BMI 36.2
[2022-06-22] MEDS ORDERED: SODIUM CHLORIDE 0.9% 10ML INJ IV PRN (16:46)
[2022-06-22 16:57] VITALS: O2SAT 100
[2022-06-22] MEDS: PIPER TAZO 3.375 GM in NA CHLORIDE 0.9% 100 ML IV SCH (17:20)
[2022-06-22] MEDS ORDERED: POTASSIUM 25 MEQ EFFERV TAB PO ONE (18:00)
[2022-06-22] MEDS ORDERED: PANTOPRAZOLE 40 MG INJ IVP SCH (18:00)
[2022-06-22 18:05] LABS: Ferritin 1.2 ng/mL (8-388)
[2022-06-22] MEDS: ONDANSETRON 4 MG/2 ML VIAL IV PRN (18:58)
[2022-06-23] MEDS: PIPER TAZO 3.375 GM in NA CHLORIDE 0.9% 100 ML IV SCH ×2 (00:27→08:18)
[2022-06-23] MEDS: ACETAMINOPHEN 325 MG TABLET PO PRN ×2 (04:15→13:20)
[2022-06-23 05:50] LABS: Potassium 3.9 mmol/L (3.5-5.1)
[2022-06-23 05:53] LABS: Absolute Lymphocytes (CBC) 1.8 K/uL (0.7-4.9); Hematocrit 22.3 % (36.0-45.0); Lymphocytes % 30.5 % (15.3-44.8); MPV 8.9 fL (7.6-11.3); RBC Red Blood Cell Count 3.79 M/uL (3.86-4.86)
[2022-06-23] MEDS ORDERED: NA CHLORIDE 0.9% 250 ML IV SCH (07:00)
[2022-06-23 07:07] LABS: Anisocytosis 1+; Blood Morphology Comment NOTED (NOT SEEN); Hypochromasia 2+; Platelet Estimate DECR
[2022-06-23 07:25] LABS: Albumin 3.2 g/dL (3.4-5.0); Bilirubin Direct 0.2 mg/dL (0-0.2); Bilirubin Total 0.8 mg/dL (0.2-1.0); Protein, Total 6.7 g/dL (6.4-8.2)
[2022-06-23] MEDS ORDERED: NA CHLORIDE 0.9% 500 ML ONE (08:43)
[2022-06-23] MEDS: ONDANSETRON 4 MG/2 ML VIAL IV PRN (09:04)
[2022-06-23] MEDS: HYDROMORPHONE HCL 1 MG/ML INJ IV PRN (09:04)
[2022-06-23 09:44] LABS: Specific Gravity 1.016 (1.005-1.030)
[2022-06-23 10:00] LABS: Specific Gravity 1.016 (1.005-1.030); Urine Bilirubin NEGATIVE (Negative); Urine Blood 1+ (Negative); Urine Clarity Clear (Clear); Urine Color Light-Yellow (Yellow); Urine Glucose NEGATIVE (Negative); Urine Mucus Slight /HPF (None Seen); Urine Protein NEGATIVE (Negative); Urine RBC <5 /HPF (None Seen); Urine Urobilinogen 2+ (Normal); Urine pH 7.5 (5.0-7.0)
[2022-06-23 13:29] LABS: Hematocrit 25.7 % (36.0-45.0)
[2022-06-23 16:03] VITALS: BP 101/61; TEMP 97.5
--- NOTE | 2022-06-23 16:03 | P.DS ---
Admission Date: 06/22/22 Discharge Date: 06/23/22 Disposition: ROUTINE DISCHARGE Discharge Condition: GOOD Reason for Admission: Abdominal pain Consultations: General Surgery - Dr. Johnson Brief History of Present Illness: 36yo F, PMH: Iron deficiency anemia, obesity, gastric ulcer Presented to ED due to RUQ pain for ~1-2 days. Aching in nature, with nausea and shortness of breath. Workup in ED concerning for mild acute cholecystitis. Hospital Course: Patient presented with RUQ abdominal pain with nausea. U/S and CT revealed mild gallbladder wall thickening and stones/sludge in gallblader. Dr. Johnson, general surgery, was consulted. Patient had improvement of her symptoms with antibiotics and bowel rest. Diet was advanced to soft foods which she tolerated with minimal discomfort, relieved by tylenol. Dr. Johnson recommended discharge home to complete 2 weeks total of antibiotics - 12 more days of Augmentin has been prescribed. Patient has Tylenol #3 at home to use as needed for pain. Return precautions given. Education on appropriate diet given by Dr. Johnson. Follow up with Dr. Johnson. Patient will need elective cholecystectomy in near future Patient with chronic anemia, secondary to iron deficiency. Hgb dropped to 6.4 on morning after admission, received 1 unit of blood with appropriate improvement. To continue with oral Iron. Discussed patient would benefit from scheduled IV iron infusions, however cost is prohibitive at this time. Follow up with PCP within 1-2 weeks. Vital Signs/Physical Exam: Temp Pulse Resp BP Pulse Ox 97.6 F 60 18 98/53 L 100 06/23/22 12:00 06/23/22 12:00 06/23/22 12:00 06/23/22 12:00 06/23/22 12:00 General: Alert, In no apparent distress, Oriented x3 HEENT: EOMI, Sclerae nonicteric Neck: Supple, No LAD Respiratory: Clear to auscultation bilaterally, Normal air movement Cardiovascular: No edema, Regular rate/rhythm Gastrointestinal: Soft and benign, Non-distended, No tenderness Musculoskeletal: No contractures, No tenderness Integumentary: No rashes, No significant lesion Neurological: Normal speech, Normal affect Laboratory Data at Discharge: WBC 5.80 K/uL (4.3-10.9) 06/23/22 04:22 Hgb 7.2 g/dL (12.0-15.0) L D 06/23/22 13:03 Hct 25.7 % (36.0-45.0) L 06/23/22 13:03 Plt Count 97 K/uL (152-406) L* 06/23/22 04:22 Sodium 138 mmol/L (136-145) 06/23/22 04:22 Potassium 3.9 mmol/L (3.5-5.1) 06/23/22 04:22 BUN 4 mg/dL (7-18) L 06/23/22 04:22 Creatinine 0.51 mg/dL (0.55-1.3) L 06/23/22 04:22 Glucose 102 mg/dL (74-106) 06/23/22 04:22 Total Bilirubin Cancelled 06/23/22 06:57 AST Cancelled 06/23/22 06:57 ALT Cancelled 06/23/22 06:57 Alkaline Phosphatase Cancelled 06/23/22 06:57 Lipase 91 U/L (73-393) 06/22/22 05:38 Home Medications: Amox/Clavulanate [Augmentin 875-125 Tab] 1 tab PO BID 12 Days #24 tab 06/23/22 New Medications: Amox/Clavulanate [Augmentin 875-125 Tab] 1 tab PO BID 12 Days #24 tab Physician Discharge Instructions: Patient presented with RUQ abdominal pain with nausea. U/S and CT revealed mild gallbladder wall thickening and stones/sludge in gallblader. Dr. Johnson, general surgery, was consulted. Patient had improvement of her symptoms with antibiotics and bowel rest. Diet was advanced to soft foods which she tolerated with minimal discomfort, relieved by tylenol. Dr. Johnson recommended discharge home to complete 2 weeks total of antibiotics - 12 more days of Augmentin has been prescribed. Patient has Tylenol #3 at home to use as needed for pain. Return precautions given. Education on appropriate diet given by Dr. Johnson. Follow up with Dr. Johnson. Patient will need elective cholecystectomy in near future Patient with chronic anemia, secondary to iron deficiency. Hgb dropped to 6.4 on morning after admission, received 1 unit of blood with appropriate improvement. To continue with oral Iron. Discussed patient would benefit from scheduled IV ir on infusions, however cost is prohibitive at this time. Follow up with PCP within 1-2 weeks. INSTRUCTIONS: Diet: Please see attached "healthy foods for the gallbladder" handout Activity: As Tolerated DME DME: N/A Date Ordered: Name of Company: [employer] Services Needed: None Name of Company: Date or Referral: IMMUNIZATION Influenza Vaccine Indicated: No Influenza Vaccine Given: Date Given: Pneumonia Vaccine Indicated: No Pneumonia Vaccine Given: Date Given: Followup: Vick Johnson MD [ACTIVE - CAN ADMIT] - 1-2 Weeks NONE,NONE [Primary Care Provider] - Time spent managing pt's care (in minutes): 45
== END 2022-06-23 16:00 | disposition home or self-care (01) ==
LOC: ER 04:42 → ERHOLD 11:45 → 2ND-WC 16:35
PROVIDERS: ADMIT Hospitalist; ATTEND Hospitalist
DX: K80.00 Calculus of gallbladder with acute cholecystitis without obstruction (principal); E66.9 Obesity, unspecified; N18.31 Chronic kidney disease, stage 3a; D69.6 Thrombocytopenia, unspecified; K25.9 Gastric ulcer, unspecified as acute or chronic, without hemorrhage or perforation; R11.0 Nausea; D50.9 Iron deficiency anemia, unspecified; Z98.84 Bariatric surgery status; Z20.822 Contact with and (suspected) exposure to COVID-19
CPT/HCPCS: 36415; 36430; 74177; 76705; 80048; 80053; 80076; 81001; 81003; 81025; 82728; 83540; 83690; 84466; 85014; 85018; 85025; 86850; 86900; 86901; 87811; 96365; 96366; 96375; 99285; C9113; G0378; J1170; J2405; J2543; J7030; J7040; J7042; P9016; Q9967

== ENCOUNTER 2024-03-25 14:46 | Emergency (ER) | payer SELFPAY ==
[2024-03-25] MEDS ORDERED: IBUPROFEN 400 MG TAB ONE (15:30)
[2024-03-25] MEDS ORDERED: HYDROCODONE/APAP 5/325 MG TAB ONE (15:30)
--- NOTE | 2024-03-25 15:42 | RAD REPORT ---
EXAM DESCRIPTION: RAD - Wrist Left 3 View - 03/25/2024 3:34 pm CLINICAL HISTORY: Pain;Deformity COMPARISON: No comparisons FINDINGS/IMPRESSION: Distal radial impaction fracture with intra-articular extension and mild dorsal tilt. Ulna is intact. No other fractures. No wrist dislocation.
--- NOTE | 2024-03-25 16:17 | EDPHYS ---
Physician Documentation [facility] Name: Anette Lewis Age: 38 yrs Sex: Female : 1985 Arrival Date: 03/25/2024 Time: 14:46 Bed 15 Private MD: ED Physician Tom Mcguire HPI: 03/25 15:19 This 38 yrs old Female presents to ER via Unassigned with complaints of Wrist Injury. sb4 15:19 The patient or guardian reports decreased range of motion, deformity, injury, pain. The sb4 complaints affect the left wrist diffusely. Context: resulted from a fall, on an outstretched hand. Onset: The symptoms/episode began/occurred last night. Modifying factors: The symptoms are alleviated by holding still, the symptoms are aggravated by movement. Associated signs and symptoms: The patient has no apparent associated signs or symptoms. Compartment Syndrome negative for numbness, tingling. The patient has not experienced similar symptoms in the past. The patient has not recently seen a physician. 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 - Infectious Disease History:: Denies. - Social history:: Smoking status: Patient denies any tobacco usage or history of. ROS: 15:19 Constitutional: Negative for fever, chills, and weight loss, sb4 15:19 MS/extremity: Positive for injury or acute deformity, decreased range of motion, pain, swelling, tenderness, of the left wrist, 15:19 All other systems are negative, Exam: 15:19 Hand exam: Circulation is intact in all extremities. Pulses: are normal with no sb4 appreciated deficits, Perfusion: the extremity is normally perfused throughout, sensation intact. Joints: the left wrist displays deformity, limited range of motion, pain at rest, painful range of motion, swelling, tenderness, 15:19 Constitutional: This is a well developed, well nourished patient who is awake, alert, and in no acute distress. Head/Face: Normocephalic, atraumatic. Eyes: Extra-ocular motions intact. Periorbital areas with no swelling, redness, or edema. ENT: Mucous membranes moist. Skin: Warm, dry with normal turgor. Normal color with no rashes, no lesions, and no evidence of cellulitis. Vital Signs: 15:17 BP 95 / 66; Pulse 107; Resp 20; Temp 98.4; Pulse Ox 100% on R/A; kj2 17:19 BP 108 / 58; Pulse 87; Resp 16; Pulse Ox 100% ; bp MDM: 15:00 Patient medically screened. sb4 16:12 Data reviewed: vital signs, nurses notes, radiologic studies, I have discussed the sb4 patient's presentation/case with the attending Emergency Department Physician; and as a result, I will discharge patient. Care significantly affected by the following Social Determinants of Health: Poor access to healthcare and/or lack of insurance. Counseling: I had a detailed discussion with the patient and/or guardian regarding the historical points, exam findings, and any diagnostic results supporting the discharge/admit diagnosis, radiology results, the need for outpatient follow up, a orthopedic surgeon, to return to the emergency department if symptoms worsen or persist or if there are any questions or concerns that arise at home. ED course: discussed with patient the importance of following up with ortho as soon as possible for surgical evaluation or could have permanent problems/deficits with her wrist. she understands and will follow up this week. 03/25 15:18 Order name: Wrist Left (3 View) XRAY; Complete Time: 15:44 sb4 03/25 16:12 Order name: Volar Wrist Splint; Complete Time: 17:18 sb4 03/25 16:12 Order name: Sling; Complete Time: 17:18 sb4 Administered Medications: 15:35 Drug: HYDROcodone-acetaminophen PO 5 mg-325 mg 1 tabs PO once Route: PO; bp 17:18 Follow up: Response: No adverse reaction bp 15:35 Drug: Ibuprofen PO 600 mg PO once Route: PO; bp 17:18 Follow up: Response: No adverse reaction bp Disposition: 18:39 Co-signature as Attending Physician, Tom Mcguire MD I reviewed the patient's care rn provided by the Advanced Practice Provider and agree with the diagnosis and treatment plan. Disposition Summary: 03/25/24 16:16 Discharge Ordered Notes: Location: Home sb4 Problem: new sb4 Symptoms: have improved sb4 Condition: Stable sb4 Diagnosis - Distal radial impaction fracture, left sb4 Followup: sb4 - With: Aristeo Velazquez MD - When: 1 - 2 days - Reason: Recheck today's complaints, Re-evaluation by your physician Followup: sb4 - With: Sy Bennett MD - When: 1 - 2 days - Reason: Recheck today's complaints, Re-evaluation by your physician Followup: sb4 - With: Shorty Arias MD - When: 1 - 2 days - Reason: Recheck today's complaints, Re-evaluation by your physician Discharge Instructions: - Discharge Summary Sheet sb4 - Radial Fracture sb4 Forms: - Prescription Opioid Use sb4 - Patient Portal Instructions sb4 - Leadership Thank You Letter sb4 Prescriptions: - acetaminophen-codeine 300-30 mg Oral tablet - take 1 tablet ORAL route every 6 hours as needed for pain; 12 tablet; Refills: sb4 0, Product Selection Permitted - Ibuprofen 800 mg Oral Tablet - take 1 tablet ORAL route every 12 hours As needed take with food; 20 tablet; sb4 Refills: 0, Product Selection Permitted Signatures: Dispatcher [employer] EDTom Dyson MD MD rn Peltier, Brian, Lenora Hernandez RN, PA-C PALea sb4 Corrections: (The following items were deleted from the chart) 15:18 15:18 Wrist Left 3 View+RAD.RAD.BRZ ordered. EDMS EDMS
--- NOTE | 2024-03-25 16:17 | ER ---
Nurse's Notes [facility] Name: Anette Lewis Age: 38 yrs Sex: Female : 1985 Arrival Date: 03/25/2024 Time: 14:46 Bed 15 Private MD: Diagnosis: Distal radial impaction fracture, left Presentation: 03/25 15:17 Chief complaint: Patient states: tripped on her dress and fell last night hurting left kj2 wrist. Pain level "7". Coronavirus screen: Vaccine status: Patient reports receiving the 1st dose of the Covid vaccine. Ebola Screen: No symptoms or risks identified at this time. Initial Sepsis Screen: Does the patient meet any 2 criteria? No. Patient's initial sepsis screen is negative. Does the patient have a suspected source of infection? No. Patient's initial sepsis screen is negative. Risk Assessment: Do you want to hurt yourself or someone else? Patient reports no desire to harm self or others. Onset of symptoms was March 24, 2024 at 19:00. Care prior to arrival: Medication(s) given: Tylenol, 325 mg. 15:17 Method Of Arrival: Ambulatory kj2 15:17 Acuity: UZAIR 3 kj2 Triage Assessment: 15:21 General: Appears in no apparent distress. uncomfortable, Behavior is calm, cooperative. kj2 Pain: Complains of pain in left arm and left wrist. Musculoskeletal: Reports pain in left arm and left wrist. Injury Description: wrist injury. 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 - Infectious Disease History:: Denies. - Social history:: Smoking status: Patient denies any tobacco usage or history of. Screenin:20 [facility] ED Fall Risk Assessment (Adult) History of falling in the last 3 months, bp including since admission Yes- single mechanical fall (1 pt) Confusion or Disorientation No (0 pts) Intoxicated or Sedated No (0 pts) Impaired Gait No (0 pts) Mobility Assist Device Used No (0 pt) Altered Elimination No (0 pt) Score/Fall Risk Level 0 - 2 = Low Risk. Abuse screen: Denies threats or abuse. Denies injuries from another. Nutritional screening: No deficits noted. Tuberculosis screening: No symptoms or risk factors identified. Assessment: 15:20 General: Appears in no apparent distress. uncomfortable, obese, Behavior is bp cooperative, appropriate for age, anxious. 17:20 Reassessment: Patient appears in no apparent distress at this time. Patient is alert, bp oriented x 3, equal unlabored respirations, skin warm/dry/pink. Vital Signs: 15:17 BP 95 / 66; Pulse 107; Resp 20; Temp 98.4; Pulse Ox 100% on R/A; kj2 17:19 BP 108 / 58; Pulse 87; Resp 16; Pulse Ox 100% ; bp ED Course: 14:47 Patient arrived in ED. ra3 14:49 Lenora Joiner PA-C is PHCP. sb4 14:49 Tom Mcguire MD is Attending Physician. sb4 15:11 Delvin Hamlin, JOSE DANIEL is Primary Nurse. bp 15:20 Provided Education on: n/a. bp 15:21 Triage completed. kj2 15:35 Wrist Left (3 View) XRAY In Process Unspecified. EDMS 16:14 Aristeo Velazquez MD is Referral Physician. sb4 16:14 Sy Bennett MD is Referral Physician. sb4 16:14 Shorty Arais MD is Referral Physician. sb4 17:18 Orthoglass splint: Volar splint applied on left arm Sling applied to left arm. bp 17:18 Patient has correct armband on for positive identification. bp 17:21 No provider procedures requiring assistance completed. Patient did not have IV access bp during this emergency room visit. 17:21 Splint/sling/ice applied as appropriate. bp Administered Medications: 15:35 Drug: HYDROcodone-acetaminophen PO 5 mg-325 mg 1 tabs PO once Route: PO; bp 17:18 Follow up: Response: No adverse reaction bp 15:35 Drug: Ibuprofen PO 600 mg PO once Route: PO; bp 17:18 Follow up: Response: No adverse reaction bp Medication: 15:20 VIS not applicable for this client. bp Outcome: 16:16 Discharge ordered by . sb4 17:21 Discharged to home ambulatory, with family, bp 17:21 Condition: stable 17:21 Discharge instructions given to patient, Instructed on discharge instructions, follow up and referral plans. medication usage, Demonstrated understanding of instructions, follow-up care, medications, splint care, Prescriptions given X 2, 17:22 Patient left the ED. bp Signatures: Dispatcher [employer] EDDelvin Flanagan, RN RN Lenora Stephenson PA-C PALea [email or web address] Kristin Orellana ra3 Juani Gamboa, RN RN kj2
[2024-03-25 17:28] VITALS: TEMP 98.4; O2SAT 100
[2024-03-25 17:30] VITALS: BP 108/58
== END 2024-03-25 17:22 | disposition home or self-care (01) ==
LOC: ER 14:46
PROC: 2W3DX1Z Immobilization of Left Lower Arm using Splint (ICD-10-PCS; principal; 2024-03-25)
DX: S52.592A Other fractures of lower end of left radius, initial encounter for closed fracture (principal)
CPT/HCPCS: 99283

== ENCOUNTER 2024-04-02 11:07 | Emergency (ER) | payer SELFPAY ==
[2024-04-02 12:26] LABS: Hematocrit 22.2 % (36.0-45.0); MCH 15.8 pg (27.0-35.0); MCHC 25.7 g/dL (32.0-36.0); MCV 61.4 fL (80-100); MPV 8.6 fL (7.6-11.3); Platelets 199 thou/uL (152-406); RBC Red Blood Cell Count 3.62 M/uL (3.86-4.86); Red Cell Distribution Width 21.7 % (12.1-15.2)
[2024-04-02 12:35] LABS: Hemoglobin 5.7 g/dL (12.0-15.0)
[2024-04-02 12:43] LABS: Anion Gap 9.6 mEq/L (5.0-15.0); Potassium 3.6 mEq/L (3.5-5.1)
[2024-04-02] MEDS ORDERED: NA CHLORIDE 0.9% 500 ML ONE (13:18)
--- NOTE | 2024-04-02 17:52 | ER ---
Nurse's Notes [facility] Name: Anette Lewis Age: 38 yrs Sex: Female : 1985 Arrival Date: 04/02/2024 Time: 11:07 Bed 5 Private MD: Diagnosis: Other dietary vitamin B12 deficiency anemia;Iron deficiency anemia, unspecified Presentation: 04/02 11:30 Chief complaint: Patient states: sent from doctor with hemoglobin 5.6. Coronavirus tm6 screen: Vaccine status:. Coronavirus screen: Vaccine status: Patient reports receiving the 2nd dose of the covid vaccine. Ebola Screen: Patient negative for fever greater than or equal to 101.5 degrees Fahrenheit, and additional compatible Ebola Virus Disease symptoms Patient denies exposure to infectious person. Patient denies travel to an Ebola-affected area in the 21 days before illness onset. No symptoms or risks identified at this time. Initial Sepsis Screen: Does the patient meet any 2 criteria? No. Patient's initial sepsis screen is negative. Does the patient have a suspected source of infection? No. Patient's initial sepsis screen is negative. Risk Assessment: Do you want to hurt yourself or someone else? Patient reports no desire to harm self or others. Onset of symptoms is unknown. 11:30 Method Of Arrival: Ambulatory tm6 11:30 Acuity: UZAIR 3 tm6 Triage Assessment: 11:32 General: Appears in no apparent distress. Behavior is calm, cooperative. Pain: Denies tm6 pain. EENT: No signs and/or symptoms were reported regarding the EENT system. Neuro: Level of Consciousness is awake, alert, obeys commands, Oriented to person, place, time, situation. Cardiovascular: Patient's skin is warm and dry. Respiratory: Airway is patent Respiratory effort is even, unlabored, Respiratory pattern is regular, symmetrical. GI: No signs and/or symptoms were reported involving the gastrointestinal system. Abdomen is round non-distended. : No signs and/or symptoms were reported regarding the genitourinary system. Derm: No signs and/or symptoms reported regarding the dermatologic system. Musculoskeletal: No signs and/or symptoms reported regarding the musculoskeletal system. 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 - Infectious Disease History:: Denies. - Social history:: Smoking status: Patient denies any tobacco usage or history of. Patient uses alcohol, occasionally. Screenin:15 [facility] ED Fall Risk Assessment (Adult) History of falling in the last 3 months, kc6 including since admission No falls in past 3 months (0 pts) Confusion or Disorientation No (0 pts) Intoxicated or Sedated No (0 pts) Impaired Gait No (0 pts) Mobility Assist Device Used No (0 pt) Altered Elimination No (0 pt) Score/Fall Risk Level 0 - 2 = Low Risk. Abuse screen: Denies threats or abuse. Denies injuries from another. Nutritional screening: No deficits noted. Tuberculosis screening: No symptoms or risk factors identified. Assessment: 12:15 General: Appears in no apparent distress. comfortable, well groomed, well developed, kc6 Behavior is calm, cooperative, appropriate for age. Pain: Denies pain. Neuro: Level of Consciousness is awake, alert, obeys commands, Oriented to person, place, time, situation, Appropriate for age. Cardiovascular: Capillary refill < 3 seconds. Respiratory: Airway is patent Trachea midline Respiratory effort is even, unlabored, Respiratory pattern is regular, symmetrical. GI: No signs and/or symptoms were reported involving the gastrointestinal system. Patient currently denies abdominal pain, bloody stool, diarrhea, nausea, vomiting. : No signs and/or symptoms were reported regarding the genitourinary system. Urine is clear. EENT: No signs and/or symptoms were reported regarding the EENT system. Derm: No signs and/or symptoms reported regarding the dermatologic system. Skin is intact, is healthy with good turgor, Skin is dry, Skin is pale, Skin temperature is warm. Musculoskeletal: Range of motion: limited in left wrist. 13:06 Reassessment: Patient appears in no apparent distress at this time. No changes from kc6 previously documented assessment. Patient and/or family updated on plan of care and expected duration. Pain level reassessed. Patient is alert, oriented x 3, equal unlabored respirations, skin warm/dry/pink. 13:55 Reassessment: please see blood transfusion flow sheet for further vitals. kc6 14:57 Reassessment: Patient appears in no apparent distress at this time. No changes from kc6 previously documented assessment. Patient and/or family updated on plan of care and expected duration. Pain level reassessed. Patient is alert, oriented x 3, equal unlabored respirations, skin warm/dry/pink. 16:56 Reassessment: Patient appears in no apparent distress at this time. No changes from kc6 previously documented assessment. Patient and/or family updated on plan of care and expected duration. Pain level reassessed. Patient is alert, oriented x 3, equal unlabored respirations, skin warm/dry/pink. 18:03 Reassessment: Patient appears in no apparent distress at this time. No changes from kc6 previously documented assessment. Patient and/or family updated on plan of care and expected duration. Pain level reassessed. Patient is alert, oriented x 3, equal unlabored respirations, skin warm/dry/pink. Vital Signs: 11:30 BP 129 / 71; Pulse 91; Resp 19; Temp 98.5(O); Pulse Ox 10% on R/A; Weight 108.41 kg; tm6 Height 5 ft. 5 in. ; Pain 0/10; 13:07 BP 112 / 72; Pulse 85; Resp 16 S; Pulse Ox 100% on R/A; kc6 14:38 BP 104 / 68; Pulse 78; Resp 16; Temp 97.9; Pulse Ox 97% ; go2 11:30 Body Mass Index 39.77 (108.41 kg, 165.1 cm) tm6 11:30 Pain Scale: Adult tm6 ED Course: 11:09 Patient arrived in ED. mr 11:26 Miracle Jay MD is Attending Physician. gb1 11:32 Triage completed. tm6 11:32 Arm band placed on right wrist. tm6 12:02 Lisset Lyons, JOSE DANIEL is Primary Nurse. kc6 12:15 Patient has correct armband on for positive identification. Bed in low position. Call [facility] in reach. Side rails up X 1. Adult w/ patient. ground helper street railway on. Pulse ox on. NIBP on. Door closed. Noise minimized. Lights dimmed. Pillow given. 12:15 Inserted saline lock: 20 gauge in right antecubital area, using aseptic technique. kc6 Blood collected. Flushed with 10 mL NS. 12:34 Notified ED physician of a critical lab result(s). HGB 5.7. ll1 12:48 Provided Education on: Blood Transfusion. kc6 18:02 No provider procedures requiring assistance completed. IV discontinued, intact, go2 bleeding controlled, No redness/swelling at site. Pressure dressing applied. Administered Medications: No medications were administered Medication: 18:03 VIS not applicable for this client. go2 Outcome: 17:51 Discharge ordered by . gb1 18:02 Discharged to home ambulatory, go2 18:02 Condition: good 18:02 Discharge instructions given to patient, Instructed on discharge instructions, follow up and referral plans. Demonstrated understanding of instructions, follow-up care, Prescriptions given X 18:03 Patient left the ED. kc6 Signatures: Mary Jo Donaldson, Jaime Reg mr TjZe, RN RN ll1 Lisset Lyons, RN RN kc6 Miracle Jay MD MD gb1 Archana Reyes RN RN 6 Mya Waller RN RN go2
--- NOTE | 2024-04-02 17:52 | EDPHYS ---
Physician Documentation [facility] Name: Anette Lewis Age: 38 yrs Sex: Female : 1985 Arrival Date: 04/02/2024 Time: 11:07 Bed 5 Private MD: ED Physician Miracle Jay HPI: 04/02 17:08 This 38 yrs old Female presents to ER via Ambulatory with complaints of gb1 Abnormal Lab Results. 17:08 38-year-old female with feeling of weakness and fatigue. Patient has a history of gb1 anemia and gastric bypass in 2001 she is also had ulcers. Patient reports that she had a GI appointment with an upper and lower endoscopy that was normal. Patient is supposed to get an iron infusion but she states she does not have insurance and since has not had any iron. She also does not take anything by mouth. She has been seen by she has not been evaluated by hematology. Patient denies any bright red blood per rectum at this time or any loss of consciousness with syncope.. 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 - Infectious Disease History:: Denies. - Social history:: Smoking status: Patient denies any tobacco usage or history of. Patient uses alcohol, occasionally. Exam: 17:08 Constitutional: This is a well developed, well nourished patient who is awake, alert, gb1 and in no acute distress. Patient is pale Head/Face: Normocephalic, atraumatic. Eyes: Pupils equal round and reactive to light, extra-ocular motions intact. Lids and lashes normal. Conjunctiva and sclera are non-icteric and not injected. Cornea within normal limits. Periorbital areas with no swelling, redness, or edema. ENT: Nares patent. No nasal discharge, no septal abnormalities noted. Tympanic membranes are normal and external auditory canals are clear. Oropharynx with no redness, swelling, or masses, exudates, or evidence of obstruction, uvula midline. Mucous membranes moist. Neck: Trachea midline, no thyromegaly or masses palpated, and no cervical lymphadenopathy. Supple, full range of motion without nuchal rigidity, or vertebral point tenderness. No Meningismus. Chest/axilla: Normal chest wall appearance and motion. Nontender with no deformity. No lesions are appreciated. Cardiovascular: Regular rate and rhythm with a normal S1 and S2. No gallops, murmurs, or rubs. Normal PMI, no JVD. No pulse deficits. Respiratory: Lungs have equal breath sounds bilaterally, clear to auscultation and percussion. No rales, rhonchi or wheezes noted. No increased work of breathing, no retractions or nasal flaring. Abdomen/GI: Soft, non-tender, with normal bowel sounds. No distension or tympany. No guarding or rebound. No evidence of tenderness throughout. Back: No spinal tenderness. No costovertebral tenderness. Full range of motion. Skin: Warm, dry with normal turgor. Normal color with no rashes, no lesions, and no evidence of cellulitis. MS/ Extremity: Pulses equal, no cyanosis. Neurovascular intact. Full, normal range of motion. Neuro: Awake and alert, GCS 15, oriented to person, place, time, and situation. Cranial nerves II-XII grossly intact. Motor strength 5/5 in all extremities. Sensory grossly intact. Cerebellar exam normal. Normal gait. Psych: Awake, alert, with orientation to person, place and time. Behavior, mood, and affect are within normal limits. Vital Signs: 11:30 BP 129 / 71; Pulse 91; Resp 19; Temp 98.5(O); Pulse Ox 10% on R/A; Weight 108.41 kg; tm6 Height 5 ft. 5 in. ; Pain 0/10; 13:07 BP 112 / 72; Pulse 85; Resp 16 S; Pulse Ox 100% on R/A; kc6 14:38 BP 104 / 68; Pulse 78; Resp 16; Temp 97.9; Pulse Ox 97% ; go2 11:30 Body Mass Index 39.77 (108.41 kg, 165.1 cm) tm6 11:30 Pain Scale: Adult tm6 MDM: 11:44 Patient medically screened. gb1 17:08 Data reviewed: vital signs, nurses notes, lab test result(s), CBC, white blood cell gb1 count, hemoglobin, hematocrit, platelets, electrolytes. 17:08 ED course: 38-year-old female with history of chronic anemia here with hemoglobin of 5. gb1 Patient has had an upper endoscopy and a lower endoscopy which have been both normal. She denies any melena or bright red blood per rectum at this time. I doubt active GI bleed. Patient needs to be evaluated for likely pernicious anemia secondary to gastric bypass in 2001. Patient has yet to see hematology. Patient was transfused here but she units of packed red blood cells without incident. I recommended close outpatient follow-up with hematology. 04/02 12:07 Order name: Type And Screen kc6 04/02 11:44 Order name: CBC w/o diff gb1 04/02 11:44 Order name: BMP gb1 04/02 12:47 Order name: Bb Add On bd 04/02 13:17 Order name: Packed RBC Leukored EDMS 04/02 12:43 Order name: Consent for Blood Transfusion; Complete Time: 12:49 gb1 04/02 12:43 Order name: IV Saline Lock; Complete Time: 12:49 gb1 Administered Medications: No medications were administered Disposition Summary: 04/02/24 17:51 Discharge Ordered Notes: Location: Home gb1 Condition: Stable gb1 Diagnosis - Other dietary vitamin B12 deficiency anemia gb1 - Iron deficiency anemia, unspecified gb1 Followup: gb1 - With: Private Physician - When: 2 - 3 days - Reason: Further diagnostic work-up Discharge Instructions: - Discharge Summary Sheet gb1 - Iron Deficiency Anemia, Adult gb1 Forms: - Medication Reconciliation Form gb1 - Antibiotic Education gb1 - Prescription Opioid Use gb1 - Patient Portal Instructions gb1 - Leadership Thank You Letter gb1 Critical care time excluding procedures: 17:52 Critical care time: Bedside Care: 120 minutes, Family Intervention: 40 minutes. Total gb1 time: 160 minutes Signatures: Dispatcher [employer] EDMS Miracle Jay MD MD gb1 Archana Reyes RN RN tm6 Corrections: (The following items were deleted from the chart) 13:18 12:44 PACKED RBC LEUKORED+[id number].LAB.BRZ ordered. EDMS EDMS 13:18 12:46 ABO/RH typing ordered. EDMS EDMS 13:18 12:46 Antibody Screen ordered. EDMS EDMS
[2024-04-02 18:15] VITALS: BP 104/68; TEMP 97.9; O2SAT 97
== END 2024-04-02 18:03 | disposition home or self-care (01) ==
LOC: ER 11:07
PROC: 30233N1 Transfusion of Nonautologous Red Blood Cells into Peripheral Vein, Percutaneous Approach (ICD-10-PCS; principal; 2024-04-02)
DX: D51.3 Other dietary vitamin B12 deficiency anemia (principal); D50.9 Iron deficiency anemia, unspecified
CPT/HCPCS: 36415; 80048; 85027; 86850; 86900; 86901; 86920; J7050; P9016

== ENCOUNTER 2024-04-04 09:44 | Day surgery (SDC) | payer SELFPAY ==
[2024-04-04 10:03] LABS: Absolute Eosinophils 0.1 K/uL (0-0.5); Absolute Lymphocytes (CBC) 1.4 K/uL (0.7-4.9); Absolute Monocytes 0.4 K/uL (0.1-1.3); Absolute Neutrophil 1.8 K/uL (1.8-8.0); Basophils % 0.9 % (0-1.3); Hematocrit 28.7 % (36.0-45.0); Hemoglobin 8.2 g/dL (12.0-15.0); Lymphocytes % 38.3 % (15.3-44.8); MCH 18.8 pg (27.0-35.0); MCHC 28.6 g/dL (32.0-36.0); MCV 65.7 fL (80-100); MPV 8.7 fL (7.6-11.3); Monocytes % 11.1 % (3.3-12.3); Neutrophils % 47.7 % (41.7-73.7); Nucleated Red Blood Cells % 0.2 % (0-0); Platelets 231 thou/uL (152-406); RBC Red Blood Cell Count 4.37 M/uL (3.86-4.86); Red Cell Distribution Width 28.1 % (12.1-15.2)
[2024-04-04 10:40] LABS: Anisocytosis 2+; Atypical Lymphocytes 2 %; Blood Morphology Comment NOTED (NOT SEEN); Differential Total Cells Count 100; Hypochromasia 2+; Lymphocytes 50 % (15-42); Microcytosis 2+; Monocytes 7 % (0-10); Platelet Estimate ADEQ; Poikilocytosis 1+; Segmented Neutrophils 40 % (40-80)
[2024-04-04 10:41] LABS: Teardrop Cell 1+
[2024-04-04] MEDS ORDERED: MIDAZOLAM HCL 2 MG/2 ML INJ ONE (11:11)
[2024-04-04] MEDS ORDERED: FENTANYL CITR 100 MCG/2 ML ONE (11:11)
[2024-04-04] MEDS ORDERED: dexAMETHasone 10 MG/ML VIAL ONE ×2 (11:11→11:42)
[2024-04-04] MEDS ORDERED: LIDOCAINE 1% MPF 5 ML VIAL ONE (11:11)
[2024-04-04] MEDS ORDERED: EPINEPHRINE 1 MG/ML VIAL ONE ×2 (11:13→11:15)
[2024-04-04] MEDS ORDERED: KETOROLAC 30 MG/ML INJ ONE (11:42)
[2024-04-04] MEDS ORDERED: ONDANSETRON 4 MG/2 ML VIAL ONE (11:42)
[2024-04-04] MEDS ORDERED: LIDOCAINE 2% MPF 5 ML VIAL ONE (11:42)
[2024-04-04] MEDS ORDERED: propofoL 200 MG/20 ML VIAL IV ONE (11:42)
[2024-04-04] MEDS: CEFAZOLIN SODIUM 1 GM/VIAL ONE (12:04)
--- NOTE | 2024-04-04 13:26 | RAD REPORT ---
EXAM DESCRIPTION: RAD - Wrist Left 3 View - 04/04/2024 1:12 pm CLINICAL HISTORY: ORIF LEFT WRIST FX Pain COMPARISON: <Comparisons> FINDINGS: Fluoroscopy time 1.0 minutes.
[2024-04-04 13:35] VITALS: O2SAT 100
--- NOTE | 2024-04-04 13:51 | OP ---
Date of Procedure: 04/04/2024 Surgeon: Sy Bennett MD Preoperative Diagnosis: Left displaced extra-articular distal radius fracture. Postoperative Diagnosis: Left displaced extra-articular distal radius fracture. Procedure: Open reduction and internal fixation of distal radius fracture using the Acumed volar drea ting system. Estimated Blood Loss: Less than 10 cc. Complications: There were no complications. Specimens: No pathology specimens sent. Indications For Operation: Ms. Lewis is a 38-year-old female who unfortunately fell injuring her left upper extremity. She was seen in my office where she demonstrated a quite displaced and angulat ed distal radius fracture. Fortunately, this did appear to be extra-articular. Risks, benefits, and alternatives of different methods of treating this have been discussed with her and she selects open reduction and internal fixation, and this was planned for her. However, unfortunately, when she had preop labs, she had a hemoglobin of below 6, which was somewhat surprising. Unfortunately, she had to undergo transfusions and she is working with other physicians with regard to the origin and treatm ent of this. However, today her hemoglobin was 8.5, and risks, benefits, and alternatives were again discussed regarding treatment. She says she understands things as presented and wishes to proceed. Description Of Procedure: The patient was taken to the operating room, placed in the supine position . A block had previously been obtained by Anesthesia. Following this, her left upper extremity was then prepped and draped in the usual sterile fashion for the procedure with a well-padded tourniquet being placed on superior left arm. Following this, the left upper extremity was then elevated, but n ot exsanguinated. Tourniquet was raised. A standard volar approach of Gregory was then taken down mayrse walker through skin only. Meticulous hemostasis being maintained using bipolar electrocautery. This led down to the tendon of the flexor carpi radialis which was reflected radialward to protect the ra dial artery. The underlying sheath was then exploited and the tendon and the muscle belly of the fle xor pollicis longus was encountered. It was then swept ulnarward to protect the median nerve. After this, the pronator quadratus was then divided in its midsubstance longitudinally and gently removed off the volar surface of the radius with a wood handle elevator. This led down to the fracture site. There was early healing already present and somewhat difficult to mobilize with closed techniques. Therefore, rongeur was used to gently debride some early callus as well as a Austin elevator being us ed to help with reduction. This did improve it, however, it was not improved enough to think that we could proceed in normal fashion. Therefore, decision was made to place the distal screws and pegs w ith the exception of the styloid pegs first. These were applied with the position as best reduction was obtained. Following this, attention was then turned to the shaft and the plate was used as a lev er as the shaft screws were placed. This brings it back up to essentially normal position and defini tely acceptable. After this, the 2 styloid screws were placed. It was observed under biplanar radio graphy to ensure length of pegs and screws were correct. It is a little bit off the bone volarly, bu t it was felt that this was acceptable and definitely a good reduction. The wound was gently irrigat ed and skin was closed using interrupted nylon sutures and horizontal mattress. The patient was then placed in a very well-padded sterile dressing as well as a volar splint, awakened, and taken to [facility] very room in good condition. There were no complications. SE/MODL Voice ID: [id number] Report ID: [id number]
[2024-04-04 15:24] VITALS: BP 118/65
[2024-04-04 15:25] VITALS: TEMP 97.1
== END 2024-04-04 15:01 | disposition home or self-care (01) ==
LOC: OR 09:44
PROVIDERS: ATTEND Orthopaedic Surgery
PROC: 0PSJ04Z Reposition Left Radius with Internal Fixation Device, Open Approach (ICD-10-PCS; principal; 2024-04-04 12:00)
DX: S52.552A Other extraarticular fracture of lower end of left radius, initial encounter for closed fracture (principal); D64.9 Anemia, unspecified
CPT/HCPCS: 36415; 81025; 85025; C1713; C1889; J0171; J0690; J1100; J2001; J2250; J2405; J2704; J3010